=== PATIENT | female | born 1995 | race Two or more races ===

== ENCOUNTER 2021-05-14 17:07 | Emergency (ER) | payer OTHER ==
[~2021-05-14] VITALS: Ht 152.4 cm; Wt 86.2 kg
[2021-05-14] MEDS ORDERED: PEPCID20 MG PO (17:31)
[2021-05-14] MEDS ORDERED: PRENA1 TRUE CO1 EACH PO (17:31)
[2021-05-14] MEDS ORDERED: ZOFRAN8 MG (17:31)
== END 2021-05-14 20:04 | disposition home or self-care (01) ==
LOC: ER 17:07
DX: K29.60 Other gastritis without bleeding (principal); O23.90 Unspecified genitourinary tract infection in pregnancy, unspecified trimester; Z3A.08 8 weeks gestation of pregnancy

== ENCOUNTER 2021-05-20 17:34 | Emergency (ER) | payer OTHER ==
[~2021-05-20] VITALS: Ht 152.4 cm; Wt 86.2 kg
[~2021-05-20 17:34] MED LIST: PEPCID20 MG PO; PRENA1 TRUE CO1 EACH PO; ZOFRAN8 MG
== END 2021-05-20 20:47 | disposition home or self-care (01) ==
LOC: ER 17:34
DX: R11.10 Vomiting, unspecified (principal); Z20.822 Contact with and (suspected) exposure to COVID-19; O26.892 Other specified pregnancy related conditions, second trimester; Z3A.10 10 weeks gestation of pregnancy

== ENCOUNTER → 2021-05-25 | Emergency (ER) | payer OTHER ==
[~2021-05-25] VITALS: Ht 152.4 cm; Wt 86.2 kg
== END | disposition left against medical advice (07) ==
LOC: ER 03:04
DX: O21.1 Hyperemesis gravidarum with metabolic disturbance (principal); Z3A.00 Weeks of gestation of pregnancy not specified; Z53.29 Procedure and treatment not carried out because of patient's decision for other reasons

== ENCOUNTER 2021-06-02 22:25 | Emergency (ER) | payer OTHER ==
[~2021-06-02] VITALS: Ht 152.4 cm; Wt 86.6 kg
== END 2021-06-03 10:37 | disposition home or self-care (01) ==
LOC: ER 22:25
DX: O21.0 Mild hyperemesis gravidarum (principal); Z3A.11 11 weeks gestation of pregnancy

== ENCOUNTER 2021-06-20 08:30 | Outpatient (CLI) | payer OTHER | END 2021-06-20 09:38 | disposition home or self-care (01) | LOC: PRENATAL 08:30 | PROVIDERS: ATTEND Obstetrics & Gynecology Maternal & Fetal Medicine | DX: O36.80X0 Pregnancy with inconclusive fetal viability, not applicable or unspecified (principal); O99.210 Obesity complicating pregnancy, unspecified trimester; Z36.9 Encounter for antenatal screening, unspecified ==

== ENCOUNTER 2021-08-14 08:34 | Outpatient (CLI) | payer OTHER | END 2021-08-14 09:35 | disposition home or self-care (01) | LOC: PRENATAL 08:34 | PROVIDERS: ATTEND Obstetrics & Gynecology Maternal & Fetal Medicine | DX: O35.0XX0 Maternal care for (suspected) central nervous system malformation in fetus, not applicable or unspecified (principal); O35.3XX0 Maternal care for (suspected) damage to fetus from viral disease in mother, not applicable or unspecified; O99.210 Obesity complicating pregnancy, unspecified trimester; O23.02 Infections of kidney in pregnancy, second trimester; Z3A.22 22 weeks gestation of pregnancy ==

== ENCOUNTER 2021-10-27 10:12 | Outpatient (CLI) | payer OTHER | END 2021-10-27 11:33 | disposition home or self-care (01) | LOC: PRENATAL 10:12 | PROVIDERS: ATTEND Obstetrics & Gynecology Maternal & Fetal Medicine | DX: O26.849 Uterine size-date discrepancy, unspecified trimester (principal); O35.0XX0 Maternal care for (suspected) central nervous system malformation in fetus, not applicable or unspecified; O99.210 Obesity complicating pregnancy, unspecified trimester; Z3A.32 32 weeks gestation of pregnancy ==

== ENCOUNTER 2021-11-25 13:50 | Inpatient (IN) | payer OTHER ==
[~2021-11-25] VITALS: Ht 152.4 cm; Wt 3.6 kg
== END 2021-12-18 13:45 | disposition home or self-care (01) | DRG 788 ==
LOC: LDR 12-15 07:19 → OB/GYN 12-15 22:42 → SURH 12-19 13:50
PROVIDERS: ADMIT Obstetrics & Gynecology; ATTEND Obstetrics & Gynecology
PROC: 4A1HXCZ Monitoring of Products of Conception, Cardiac Rate, External Approach (ICD-10-PCS; 2021-12-15)
PROC: 3E033VJ Introduction of Other Hormone into Peripheral Vein, Percutaneous Approach (ICD-10-PCS; 2021-12-15)
PROC: 3E0P7VZ Introduction of Hormone into Female Reproductive, Via Natural or Artificial Opening (ICD-10-PCS; 2021-12-15)
PROC: 10D00Z1 Extraction of Products of Conception, Low, Open Approach (ICD-10-PCS; principal; 2021-12-15 17:45)
DX: O33.5XX0 Maternal care for disproportion due to unusually large fetus, not applicable or unspecified (principal); O36.63X0 Maternal care for excessive fetal growth, third trimester, not applicable or unspecified; Z3A.39 39 weeks gestation of pregnancy; Z37.0 Single live birth; Z20.822 Contact with and (suspected) exposure to COVID-19

== ENCOUNTER 2025-04-23 10:50 | Emergency (ER) | payer OTHER ==
[~2025-04-23] VITALS: Ht 162.6 cm; Wt 72.6 kg
[2025-04-23] MEDS ORDERED: CEFTRIAXONE SODIUM 1,000 MG VIAL IM ONE (14:00)
[2025-04-23] MEDS ORDERED: KETOROLAC TROMETHAMINE 60 MG VIAL IM ONE ×2 (14:00→15:04)
[2025-04-23] MEDS ORDERED: CETIRIZINE HCL 5 MG/5 ML ML PO ONE (14:00)
[2025-04-23] MEDS ORDERED: LIDOCAINE HCL 1% 10ML VIAL ONE (15:04)
[2025-04-23] MEDS ORDERED: CEFTRIAXONE SODIUM 1,000 MG VIAL ONE (15:05)
[2025-04-23] MEDS ORDERED: CETIRIZINE HCL 5MG/5ML BLIST.PACK PO ONE (15:05)
[2025-04-23 15:31] LABS: BASO % 0.3 % (0.1-1.2); EOS # 0.00 (0.04-0.54); EOS % 0.0 % (0.7-7.0); LYMPH # 0.64 (1.18-3.74); LYMPH % 11.1 % (19.3-53.1); MEAN PLATELET VOLUME 11.00 fl (9.4-12.4); MONO # 0.80 (0.24-0.82); NEUT # 4.31 (1.56-6.13); NEUT % 74.6 % (34.0-71.1); RED CELL DISTRIBUTION WIDTH 12.5 % (11.6-14.4)
[2025-04-23 15:36] LABS: MONO % 13.8 % (4.7-12.5)
[2025-04-23 16:33] LABS: COVID-19 AG NEGATIVE (NEGATIVE)
== END 2025-04-23 18:17 | disposition home or self-care (01) ==
LOC: ER 10:51
PROVIDERS: General Practice
DX: J11.1 Influenza due to unidentified influenza virus with other respiratory manifestations (principal); M54.59 Other low back pain; M54.9 Dorsalgia, unspecified; Z20.822 Contact with and (suspected) exposure to COVID-19